=== PATIENT | female | born 1985 | race Two or more races ===

== ENCOUNTER 2022-01-14 10:43 | Emergency (ER) | payer OTHER ==
[~2022-01-14] VITALS: Ht 162.6 cm; Wt 72.6 kg
--- NOTE | 2022-01-14 10:57 | NUR ---
CAME IN FOR RLQ PAIN FOR MONTHS, AND L SIDE EAR PAIN x 3 DAYS. TO ER BED 9, HOOKED TO MONITOR, CHANGED TO HOSP GOWKeo, YADIRA MARQUIS PROVIDED. AWAITING MD MILTON.
--- NOTE | 2022-01-14 11:06 | NUR ---
DR HORNE AT BEDSIDE
--- NOTE | 2022-01-14 11:20 | NUR ---
URINE COLLECTED AND SENT TO LAB
--- NOTE | 2022-01-14 11:25 | NUR ---
SALINE LOCK ESTABLISHED, BLOOD DRAWN AND SENT TO LAB
[2022-01-14] MEDS ORDERED: IV NS 0.9% 500 ML BAG IV ONE (11:30)
[2022-01-14 11:34] LABS: BILIRUBIN,URINE NEGATIVE (NEGATIVE); COLOR,URINE YELLOW (YELLOW); LEUKOCYTE ESTERASE ,URINE NEGATIVE (NEGATIVE); NITRITE, URINE NEGATIVE (NEGATIVE); PROTEIN,URINE NEGATIVE (NEGATIVE); UGLUCOSE NEGATIVE (NEGATIVE); UROBILINOGEN,URINE 0.2 EU/dL (0.2)
[2022-01-14 11:50] LABS: BASOPHILS % (AUTO) 0.4 % (0.0-2.0); EOSINOPHILS % (AUTO) 1.1 % (0.0-6.0); HEMATOCRIT 39 % (33-45); LYMPHOCYTES # (AUTO) 2.3 K/uL (0.8-4.8); LYMPHOCYTES % (AUTO) 31.6 % (20.0-44.0); MEAN CORPUSCULAR HGB CONC 34 g/dl (31.0-36.0); MEAN CORPUSCULAR VOLUME 83 fL (82-100); MONOCYTES # (AUTO) 0.5 K/uL (0.1-1.30); MONOCYTES % (AUTO) 6.9 % (2.0-12.0); NEUTROPHILS # (AUTO) 4.4 K/uL (1.8-8.9); PLATELET COUNT (AUTO) 186 K/uL (150-450); RED BLOOD CELL COUNT(AUTO) 4.64 MIL/uL (4.0-5.2); WHITE BLOOD COUNT (AUTO) 7.4 K/uL (4.3-11.0)
[2022-01-14 11:59] LABS: CREATININE 0.6 mg/dL (0.6-1.3); POTASSIUM 3.6 mmol/L (3.5-5.1)
[2022-01-14] MEDS ORDERED: IOHEXOL-300 100 ML VIAL IV ONE (11:59)
[2022-01-14] MEDS ORDERED: CT SWABBABLE VALVE TRANS SET 1 EA INFUS.SET MC ONE (11:59)
[2022-01-14] MEDS ORDERED: IV NS 0.9% 250 ML IV ONE (11:59)
[2022-01-14 12:04] LABS: ALBUMIN 4.3 g/dL (3.4-5.0); BILIRUBIN,DIRECT 0.2 mg/dL (0.0-0.2); BILIRUBIN,TOTAL 1.1 mg/dL (0.2-1.0); TOTAL PROTEIN, SERUM 8.7 g/dL (6.4-8.2)
[2022-01-14 12:37] LABS: BACTERIA,URINE None seen /HPF (None Seen); SQUAMOUS EPITHELIAL CELL,UR Few /HPF (None Seen); WBC,URINE 0-2 /HPF (0-3)
[2022-01-14] MEDS ORDERED: IBUP-1955 PO (13:58)
--- NOTE | 2022-01-14 14:12 | NUR ---
IV removed. Catheter intact and site benign. Pressure and 4x4 applied to site. No bleeding noted.Patient discharged to home in stable condition. Written and verbal after care instructions given. Patient verbalizes understanding of instruction.
[2022-01-14 14:14] VITALS: BP 122/74
[2022-01-14] MEDS ORDERED: CIPR7.5D9 LEFT EAR (14:15)
== END 2022-01-14 14:14 | disposition home or self-care (01) ==
LOC: ER 10:51
DX: R10.2 Pelvic and perineal pain (principal); R10.30 Lower abdominal pain, unspecified; H60.92 Unspecified otitis externa, left ear
CPT/HCPCS: 99285; 74177; 85025; 80048; 87086; 80076; 84703; 81001; 36415; 85730; J7050; J7040; Q9967